=== PATIENT | female | born 1995 | race Caucasian/White ===

== ENCOUNTER 2022-03-05 10:45 | Day surgery (SDC) | payer OTHER ==
[2022-03-05 11:35] VITALS: BMI 30.5
[2022-03-05] MEDS ORDERED: hydrALAZINE 20 MG/ML VIAL SLOW IVP PRN (11:54)
[2022-03-05 12:37] LABS: Creatinine, Urine 35.65 mg/dL (47-110); Protein, Urine Random Quant Less than 10 mg/dL (1-14)
[2022-03-05 14:32] LABS: #Monocytes 0.6 10x3/uL (0.0-1.1); #Neutrophils 9.3 10x3/uL (1.5-8.4); %Basophils 0.1 % (0.0-2.0); %Eosinophils 0.2 % (0.0-6.0); %Lymphocytes 18.7 % (18.0-47.0); %Monocytes 4.5 % (0.0-10.0); %Neutrophils 76.1 % (40.0-75.0); Mean Corpuscular HGB CONC 34.4 g/dL (32.0-36.0); Mean Corpuscular Hemoglobin 30.6 pg (27.0-33.0); Mean Corpuscular Volume 88.9 fl (81.6-98.3); Mean Platelet Volume 9.8 fl (7.4-10.4); Platelet Count 266 10x3/uL (150-450); RBC Distribution Width 13.5 % (11.5-14.5); White Blood Cell (WBC) Count 12.2 10x3/uL (3.5-10.5)
[2022-03-05 14:49] LABS: ALT (SGPT) 14 U/L (8-55); AST (SGOT) 14 U/L (5-34); Albumin 3.2 g/dL (3.5-5.0); Alkaline Phosphatase 109 U/L (40-110); Anion Gap 14 mmol/L (10-20); BUN (Urea Nitrogen) 7 mg/dL (7.0-18.7); Bilirubin, Total 0.3 mg/dL (0.2-1.2); Calc. Creatinine Clearance 130 mL/min (70-130); Calcium 9.1 mg/dL (7.8-10.44); Carbon Dioxide 21 mmol/L (22-29); Chloride 106 mmol/L (98-107); Estimated GFR 100; Glucose 123 mg/dL (70-105); Potassium 3.2 mmol/L (3.5-5.1); Protein, Total 6.2 g/dL (6.0-8.3); Sodium 138 mmol/L (136-145)
[2022-03-05] MEDS ORDERED: Famotidine 20 MG TAB PO SCH (15:30)
== END 2022-03-05 15:40 | disposition home health service (06) ==
LOC: CSHLD/OP 10:45
PROVIDERS: ATTEND Obstetrics & Gynecology
DX: O47.03 False labor before 37 completed weeks of gestation, third trimester (principal); O16.3 Unspecified maternal hypertension, third trimester; O99.283 Endocrine, nutritional and metabolic diseases complicating pregnancy, third trimester; E28.2 Polycystic ovarian syndrome; O99.613 Diseases of the digestive system complicating pregnancy, third trimester; K21.9 Gastro-esophageal reflux disease without esophagitis; Z3A.33 33 weeks gestation of pregnancy; Z79.82 Long term (current) use of aspirin; Z79.84 Long term (current) use of oral hypoglycemic drugs; Z79.899 Other long term (current) drug therapy; Z88.2 Allergy status to sulfonamides; Z88.1 Allergy status to other antibiotic agents
CPT/HCPCS: 36415; 80053; 82570; 84156; 85025; 99285

== ENCOUNTER 2022-04-17 05:30 | Inpatient (IN) | payer OTHER ==
[2022-04-17] MEDS ORDERED: NS w/ Oxytocin 30 units 500 ML ONE (07:43)
[2022-04-17 07:51] VITALS: BMI 30.9
[2022-04-17] MEDS ORDERED: Ibuprofen 800 MG TAB PO PRN (07:52)
[2022-04-17] MEDS ORDERED: NS w/ Oxytocin 30 units 500 ML IV SCH ×3 (07:52→19:38)
[2022-04-17] MEDS ORDERED: Lidocaine 1% (PF) 30 ML VIAL SC PRN (07:52)
[2022-04-17] MEDS ORDERED: Ondansetron PF 4 MG/2 ML Vial IVP PRN ×3 (07:52→19:38)
[2022-04-17] MEDS ORDERED: Promethazine HCl 25 MG/ML VIAL IM PRN ×2 (07:52→10:42)
[2022-04-17] MEDS ORDERED: Penicillin G Potassium 5 MILL.UNITS in Sodium Chloride 0.9% 100 ML IVPB SCH (07:52)
[2022-04-17] MEDS ORDERED: HYDROcodone/Acetaminophen 5/325 mg Tablet PO PRN ×4 (07:52→19:38)
[2022-04-17] MEDS ORDERED: hydrALAZINE 20 MG/ML VIAL SLOW IVP PRN ×2 (07:52→19:38)
[2022-04-17] MEDS ORDERED: Butorphanol Tartrate 1 MG/ML VIAL SLOW IVP PRN (07:52)
[2022-04-17] MEDS: Lactated Ringer's 1,000 ML IV SCH ×2 (08:02→19:10)
[2022-04-17 08:52] LABS: Hemoglobin 11.5 g/dL (12.0-15.5); Mean Corpuscular HGB CONC 33.7 g/dL (32.0-36.0); Mean Corpuscular Hemoglobin 29.3 pg (27.0-33.0); Mean Corpuscular Volume 86.8 fl (81.6-98.3); Mean Platelet Volume 9.8 fl (7.4-10.4); Platelet Count 259 10x3/uL (150-450); RBC Distribution Width 13.7 % (11.5-14.5); Red Blood Cell (RBC) Count 3.93 10x6/uL (3.90-5.03); White Blood Cell (WBC) Count 11.1 10x3/uL (3.5-10.5)
[2022-04-17 09:26] LABS: Syphilis Antibody Nonreactive (Nonreactive); Syphilis Antibody Index 0.04 S/CO (<1.00 Non-Reactive)
[2022-04-17 09:28] LABS: HBSAg Index 0.16 S/CO (0-0.99); Hep B Surf Ag Non-Reactive S/CO (NonReactive)
[2022-04-17] MEDS ORDERED: Fentanyl 2 mcg/Bup 0.1% Cadd 100 ML ONE (09:48)
[2022-04-17 10:08] LABS: HIV (1/2) Antibody/Antigen Non-Reactive (NonReactive); HIV 1/2 INDEX 0.08 S/CO (<1.00)
[2022-04-17 10:12] LABS: SARS-CoV-2 NAA Rapid Test Not Detected (NotDetected)
[2022-04-17] MEDS ORDERED: Naloxone HCl 0.4 mg/ml Vial IVP PRN ×2 (10:42)
[2022-04-17] MEDS ORDERED: Lactated Ringer's 500 ML IV PRN (10:42)
[2022-04-17] MEDS ORDERED: ePHEDrine Sulfate 50 MG/10 ML VIAL SLOW IVP PRN (10:42)
[2022-04-17] MEDS ORDERED: Acetaminophen 325 MG TAB PO PRN (10:42)
[2022-04-17] MEDS ORDERED: diphenhydrAMINE 50 MG/ML VIAL IVP PRN (10:42)
[2022-04-17] MEDS ORDERED: Moisturizing Cream (Eucerin) 113 GM JAR TOP PRN (10:42)
[2022-04-17] MEDS ORDERED: Communication Order-Pharmacy FS SCH (10:45)
[2022-04-17] MEDS ORDERED: Fentanyl 2 mcg/Bupivacaine 0.1% Cassette 100 ML EPIDURAL SCH (10:45)
[2022-04-17] MEDS ORDERED: Bupivacaine 0.25% HCL 30 ML VIAL ONE (12:35)
[2022-04-17] MEDS: Penicillin G 2.5 MILL.units 2.5 MILL.UNITS in Premix Bag 1 BAG IVPB SCH ×2 (13:13→19:10)
[2022-04-17] MEDS ORDERED: Witch Hazel-Glycerin 1 EACH JAR TOP PRN (19:13)
[2022-04-17] MEDS ORDERED: Milk Of Magnesia 30 ML UDCUP PO PRN (19:38)
[2022-04-17] MEDS ORDERED: Bisacodyl 10 MG SUPP PR PRN (19:38)
[2022-04-17] MEDS ORDERED: Boostrix 0.5 ML (Tdap) VIAL (>/=7 yrs of age) IM ONE (19:38)
[2022-04-17] MEDS ORDERED: Benzocaine-Menthol 82.5 ML CAN TOP PRN (19:38)
[2022-04-17] MEDS ORDERED: Lanolin Ointment 7 GM TUBE TOP PRN (19:38)
[2022-04-17] MEDS ORDERED: diphenhydrAMINE 25 MG CAP PO PRN (19:38)
[2022-04-17] MEDS ORDERED: Ferrous Sulfate 325 MG TAB PO SCH (20:00)
[2022-04-17] MEDS: Docusate 100 MG CAP PO SCH (21:48)
[2022-04-17] MEDS: Ibuprofen 800 MG TAB PO SCH (21:48)
[2022-04-18] MEDS ORDERED: Calcium Carbonate 500 MG ChewTAB PO PRN (00:32)
[2022-04-18] MEDS: Ibuprofen 800 MG TAB PO SCH ×2 (05:32→15:49)
[2022-04-18] MEDS: Docusate 100 MG CAP PO SCH (08:31)
[2022-04-18] MEDS ORDERED: Prenatal Vitamin 1 TAB PO SCH (09:00)
[2022-04-18] MEDS: Ferrous Sulfate 325 MG TAB PO SCH ×2 (12:53→17:10)
[2022-04-18 16:50] VITALS: BP 130/80; TEMP 98.5
== END 2022-04-18 18:45 | disposition home or self-care (01) | DRG 807 ==
LOC: CSHLD 06:24 → CSHPP 19:58
PROVIDERS: ADMIT Obstetrics & Gynecology; ATTEND Obstetrics & Gynecology
PROC: 10E0XZZ Delivery of Products of Conception, External Approach (ICD-10-PCS; principal; 2022-04-17)
PROC: 10907ZC Drainage of Amniotic Fluid, Therapeutic from Products of Conception, Via Natural or Artificial Opening (ICD-10-PCS; 2022-04-17)
PROC: 10H07YZ Insertion of Other Device into Products of Conception, Via Natural or Artificial Opening (ICD-10-PCS; 2022-04-17)
PROC: 0HQ9XZZ Repair Perineum Skin, External Approach (ICD-10-PCS; 2022-04-17)
PROC: 3E033VJ Introduction of Other Hormone into Peripheral Vein, Percutaneous Approach (ICD-10-PCS; 2022-04-17)
DX: O24.424 Gestational diabetes mellitus in childbirth, insulin controlled (principal); Z37.0 Single live birth; O99.344 Other mental disorders complicating childbirth; O99.824 Streptococcus B carrier state complicating childbirth; O70.0 First degree perineal laceration during delivery; F90.9 Attention-deficit hyperactivity disorder, unspecified type; Z3A.39 39 weeks gestation of pregnancy; Z20.822 Contact with and (suspected) exposure to COVID-19; O13.4 Gestational [pregnancy-induced] hypertension without significant proteinuria, complicating childbirth; O69.89X0 Labor and delivery complicated by other cord complications, not applicable or unspecified; O99.52 Diseases of the respiratory system complicating childbirth; J45.909 Unspecified asthma, uncomplicated
CPT/HCPCS: 36415; 36416; 51702; 85027; 86780; 86850; 86900; 86901; 87340; 87389; 99283; J2540; J2590; J3490; J7120; S0020; U0002